=== PATIENT | female | born 1995 | race Two or more races ===

== ENCOUNTER 2023-02-26 16:04 | Emergency (ER) | payer OTHER ==
[~2023-02-26] VITALS: Ht 157.5 cm; Wt 106.8 kg
[2023-02-26 16:28] VITALS: BP 140/90; PULSE 86; RESP 18; O2SAT 94
[2023-02-26] MEDS ORDERED: CLIN300C70 PO (16:39)
[2023-02-26] MEDS ORDERED: ACET-1080 PO (16:39)
[2023-02-26] MEDS ORDERED: ACETAMINOPHEN 500 MG TAB PO ONE (16:45)
[2023-02-26 16:50] VITALS: TEMP 98.6
== END 2023-02-26 16:55 | disposition home or self-care (01) ==
LOC: ER 16:04
DX: K04.7 Periapical abscess without sinus (principal); Z88.8 Allergy status to other drugs, medicaments and biological substances